=== PATIENT | female | born 1980 | race Caucasian/White ===

== ENCOUNTER → 2019-01-15 | Outpatient (CLI) | payer OTHER ==
[~2019-01-15] MED LIST: OMNIPAQUE 350 MG/ML, 100ML BOTTLE ONE
== END | disposition home or self-care (01) ==
LOC: CFH 13:04
PROVIDERS: ATTEND Nurse Practitioner Family
DX: K76.0 Fatty (change of) liver, not elsewhere classified (principal); D18.03 Hemangioma of intra-abdominal structures; N20.0 Calculus of kidney; N28.1 Cyst of kidney, acquired
CPT/HCPCS: 74170; Q9967

== ENCOUNTER 2019-08-04 07:12 | Day surgery (SDC) | payer OTHER ==
[~2019-08-04] VITALS: Ht 157.5 cm; Wt 68.0 kg
[2019-08-04] MEDS ORDERED: SODIUM CHLORIDE 0.9% 1,000 ML IV SCH (07:33)
[2019-08-04] MEDS ORDERED: NO MEDS PER PT (07:53)
[2019-08-04 07:54] VITALS: BP 108/74
[2019-08-04] MEDS ORDERED: LIDOCAINE 1%, 10ML ONE (08:04)
[2019-08-04] MEDS ORDERED: MIDAZOLAM 1 MG/ML, 5ML ONE (08:36)
[2019-08-04] MEDS ORDERED: NALOXONE 1 MG/ML, 2ML ONE (08:36)
[2019-08-04] MEDS ORDERED: FENTANYL PF 100 MCG/2ML ONE (08:36)
[2019-08-04] MEDS ORDERED: FLUMAZENIL 0.1 MG/1 ML, 5ML ONE (08:36)
== END 2019-08-04 10:50 | disposition home or self-care (01) ==
LOC: OUT 07:12 → EDSTATUS 09:00 → OUT 10:50
PROVIDERS: ATTEND Internal Medicine Gastroenterology
DX: R74.8 Abnormal levels of other serum enzymes (principal); R74.0 Nonspecific elevation of levels of transaminase and lactic acid dehydrogenase [LDH]; D18.03 Hemangioma of intra-abdominal structures; Z88.0 Allergy status to penicillin
CPT/HCPCS: 47000; 77012; 88307; 88313; 99156; 99157; J2250; J3010; J7030; J2310

== ENCOUNTER → 2020-07-19 | Outpatient (CLI) | payer OTHER ==
[~2020-07-19] MED LIST changes: +NO MEDS PER PT; -OMNIPAQUE 350 MG/ML, 100ML BOTTLE ONE
== END | disposition home or self-care (01) ==
LOC: RAD 06:52
PROVIDERS: ATTEND Internal Medicine Gastroenterology
DX: D18.09 Hemangioma of other sites (principal); R74.8 Abnormal levels of other serum enzymes; R74.02 Elevation of levels of lactic acid dehydrogenase [LDH]; N28.1 Cyst of kidney, acquired; K76.89 Other specified diseases of liver
CPT/HCPCS: 74181